=== PATIENT | female | born 1970 | race Caucasian/White ===

== ENCOUNTER 2021-03-03 14:51 | Outpatient (CLI) | payer BC | END 2021-03-03 14:52 | disposition home or self-care (01) | LOC: CSHMAMMO 14:51 | PROVIDERS: ATTEND Obstetrics & Gynecology | DX: Z12.31 Encounter for screening mammogram for malignant neoplasm of breast (principal); Z98.82 Breast implant status | CPT/HCPCS: 77063; 77067 ==

== ENCOUNTER 2022-05-16 08:38 | Outpatient (CLI) | payer OTHER | END 2022-05-16 08:39 | disposition home or self-care (01) | LOC: CSHMAMMO 08:38 | PROVIDERS: ATTEND Obstetrics & Gynecology | DX: Z12.31 Encounter for screening mammogram for malignant neoplasm of breast (principal); Z98.82 Breast implant status | CPT/HCPCS: 77063; 77067 ==

== ENCOUNTER 2023-11-21 16:07 | Inpatient (IN) | payer BC ==
[~2023-11-21 16:07] MED LIST: Iopamidol 370 76% 100 ML VIAL ONE
[2023-11-21] MEDS ORDERED: Aspirin Chewable 81 MG TAB ONE (17:17)
[2023-11-21 17:23] LABS: #Basophils 0.08 10x3/uL (0.0-0.2); #Eosinphils 0.86 10x3/uL (0.0-0.5); #Monocytes 0.78 10x3/uL (0.0-1.1); #Neutrophils 5.18 10x3/uL (1.5-8.4); %Basophils 0.8 % (0.0-2.0); %Eosinophils 9.1 % (0.0-6.0); %Lymphocytes 26.5 % (18.0-47.0); %Monocytes 8.3 % (0.0-10.0); %Neutrophils 54.9 % (40.0-75.0); Hematocrit 43.7 % (34.9-44.5); Hemoglobin 14.4 g/dL (12.0-15.5); Mean Corpuscular Hemoglobin 30.2 pg (27.0-33.0); Mean Corpuscular Volume 91.6 fL (81.6-98.3); Mean Platelet Volume 9.8 fL (7.4-10.4); Platelet Count 330 10x3/uL (150-450); RBC Distribution Width 12.3 % (11.5-14.5); Red Blood Cell (RBC) Count 4.77 10x6/uL (3.90-5.03); White Blood Cell (WBC) Count 9.4 10x3/uL (3.5-10.5)
[2023-11-21 17:27] LABS: PTT 30.2 sec (22.0-33.0); Prothrombin Time 11.2 sec (9.5-12.1)
[2023-11-21 17:38] LABS: ALT (SGPT) 32 U/L (8-55); AST (SGOT) 31 U/L (5-34); Albumin 4.4 g/dL (3.5-5.0); Alkaline Phosphatase 58 U/L (40-110); Anion Gap 15 mmol/L (10-20); BUN (Urea Nitrogen) 10 mg/dL (9.8-20.1); Bilirubin, Total 0.4 mg/dL (0.2-1.2); Calc. Creatinine Clearance 0 mL/min (70-130); Calcium 9.7 mg/dL (7.8-10.44); Carbon Dioxide 23 mmol/L (22-29); Chloride 102 mmol/L (98-107); Estimated GFR 90; Globulin 3.2 g/dL (2.4-3.5); Glucose 83 mg/dL (70-105); Potassium 4.2 mmol/L (3.5-5.1); Protein, Total 7.6 g/dL (6.0-8.3); Sodium 136 mmol/L (136-145)
[2023-11-21 17:39] LABS: BHCG - Serum Negative (NEGATIVE); Pregs Control Background? CLEAR/WHITE (CLR/WHITE); Pregs Control Bar Appear? YES (CONTROL BAR)
[2023-11-21 17:44] LABS: Troponin I Less than 0.010 ng/mL (< 0.028)
[2023-11-21 18:05] LABS: Influenza A by NAA Not Detected (NotDetected); Influenza B by NAA Not Detected (NotDetected); SARS-CoV-2 NAA Rapid Test Not Detected (NotDetected)
[2023-11-21] MEDS ORDERED: Senokot S 8.6-50 MG TAB PO PRN (19:24)
[2023-11-21] MEDS ORDERED: Calcium Carbonate 500 MG ChewTAB PO PRN (19:24)
[2023-11-21] MEDS ORDERED: traMADol HCl 50 MG TAB PO PRN (19:24)
[2023-11-21] MEDS ORDERED: Guaifenesin DM 100-10/5 ML UDCUP PO PRN (19:24)
[2023-11-21] MEDS ORDERED: Acetaminophen 325 MG TAB PO PRN (19:24)
[2023-11-21] MEDS ORDERED: Ondansetron PF 4 MG/2 ML Vial IVP PRN (19:24)
[2023-11-21 21:11] VITALS: BMI 22.8
[2023-11-21] MEDS: Metoprolol Tartrate 25 MG TAB PO SCH (22:04)
[2023-11-21 22:25] LABS: Troponin I 0.013 ng/mL (< 0.028)
[2023-11-22 04:09] LABS: Cholesterol 151 mg/dl (< 200 Desired); HDL Cholesterol 50 mg/dL (>60 Neg Risk); LDL Cholesterol, Calculated 91 mg/dL; Magnesium 1.9 mg/dL (1.6-2.6); Triglycerides 50 mg/dL (Less than 150)
[2023-11-22] MEDS: Aspirin 81 mg Enteric Coated Tablet PO SCH (08:27)
[2023-11-22] MEDS: Enoxaparin 40 MG (0.4 mL) SYRINGE SC SCH (08:27)
[2023-11-22] MEDS ORDERED: Perflutren Lipid Microspheres 1.1 MG/ML VIAL ONE (09:14)
[2023-11-22] MEDS ORDERED: Communication Order-Pharmacy FS SCH (12:00)
[2023-11-22] MEDS: Empagliflozin 10 MG TAB PO SCH (12:54)
[2023-11-22 13:21] LABS: HIV (1/2) Antibody/Antigen Non-Reactive (NonReactive)
[2023-11-22 16:28] LABS: Reference Lab Name LABCORP
[2023-11-22] MEDS: Carvedilol 3.125 MG TAB PO SCH (17:39)
[2023-11-22] MEDS: Sacubitril 24MG/Valsartan 26 MG TAB PO SCH (20:31)
[2023-11-22] MEDS: Zolpidem Tartrate 5 MG TAB PO PRN (20:31)
[2023-11-23 05:01] LABS: #Basophils 0.11 10x3/uL (0.0-0.2); #Monocytes 0.74 10x3/uL (0.0-1.1); %Basophils 1.3 % (0.0-2.0); %Eosinophils 12.2 % (0.0-6.0); %Lymphocytes 37.1 % (18.0-47.0); Hematocrit 46.3 % (34.9-44.5); Hemoglobin 15.2 g/dL (12.0-15.5); Mean Corpuscular HGB CONC 32.8 g/dL (32.0-36.0); Mean Corpuscular Hemoglobin 30.3 pg (27.0-33.0); Mean Corpuscular Volume 92.4 fL (81.6-98.3); Mean Platelet Volume 9.7 fL (7.4-10.4); Platelet Count 333 10x3/uL (150-450); RBC Distribution Width 12.4 % (11.5-14.5); Red Blood Cell (RBC) Count 5.01 10x6/uL (3.90-5.03); White Blood Cell (WBC) Count 8.2 10x3/uL (3.5-10.5)
[2023-11-23 05:09] LABS: PTT 29.1 sec (22.0-33.0); Prothrombin Time 11.3 sec (9.5-12.1)
[2023-11-23 05:14] LABS: ALT (SGPT) 34 U/L (8-55); AST (SGOT) 33 U/L (5-34); Albumin 4.1 g/dL (3.5-5.0); Alkaline Phosphatase 52 U/L (40-110); Anion Gap 13 mmol/L (10-20); BUN (Urea Nitrogen) 11 mg/dL (9.8-20.1); Bilirubin, Total 0.5 mg/dL (0.2-1.2); Calc. Creatinine Clearance 75 mL/min (70-130); Calcium 9.8 mg/dL (7.8-10.44); Carbon Dioxide 26 mmol/L (22-29); Chloride 104 mmol/L (98-107); Estimated GFR 86; Glucose 87 mg/dL (70-105); Potassium 4.2 mmol/L (3.5-5.1); Protein, Total 7.1 g/dL (6.0-8.3); Sodium 139 mmol/L (136-145)
[2023-11-23] MEDS: Empagliflozin 10 MG TAB PO SCH (07:42)
[2023-11-23] MEDS ORDERED: Iopamidol 300 61% 100 ML VIAL FS ONE (07:55)
[2023-11-23 10:56] LABS: Reference Lab Name LABCORP
[2023-11-23] MEDS ORDERED: Nitroglycerin 50 MG/250 ML BOT 250 ML ONE (13:21)
[2023-11-23] MEDS ORDERED: Verapamil 5 MG/2 ML VIAL ONE (13:21)
[2023-11-23] MEDS ORDERED: Heparin 10,000 UNITS/ 10 ML VIAL ONE (13:21)
[2023-11-23] MEDS ORDERED: Lidocaine 1% (PF) 30 ML VIAL ONE (13:23)
[2023-11-23] MEDS ORDERED: fentaNYL 50 mcg/mL 1 mL Vial ONE (13:24)
[2023-11-23] MEDS ORDERED: Midazolam HCl 2 mg/2 ml Vial ONE (13:24)
[2023-11-23] MEDS ORDERED: Sodium Chloride 0.9% 200 ML IV PRN (14:19)
[2023-11-23] MEDS ORDERED: Nitroglycerin 0.4 MG TAB (25 Tab Bottle) SL PRN (14:19)
[2023-11-23] MEDS ORDERED: Acetaminophen/Codeine 30-300mg Tablet PO PRN ×2 (14:19)
[2023-11-24 09:03] VITALS: TEMP 98
[2023-11-24 12:18] VITALS: BP 96/62
[2023-11-24 15:18] LABS: ANA Symphony (Qualitative) Negative (Negative); ANA Symphony (Quantitative) 0.2 Ratio (< 0.7 Negative); dsDNA IgG Antibody Less than 0.6 IU/mL (<10 Negative)
[2023-11-27 13:37] LABS: Parvovirus B19 IgG ABS 0.2 index (0.0-0.8); Parvovirus B19 IgM ABS 0.2 index (0.0-0.8)
== END 2023-11-24 13:30 | disposition home or self-care (01) | DRG 286 ==
LOC: CSHERS 16:07 → CSHTELE 19:27 → OBSVTOIN 11-23 11:10
PROVIDERS: ADMIT Student in an Organized Health Care Education/Training Program; ATTEND Internal Medicine
PROC: 4A023N7 Measurement of Cardiac Sampling and Pressure, Left Heart, Percutaneous Approach (ICD-10-PCS; principal; 2023-11-23)
PROC: B2111ZZ Fluoroscopy of Multiple Coronary Arteries using Low Osmolar Contrast (ICD-10-PCS; 2023-11-23)
PROC: B2151ZZ Fluoroscopy of Left Heart using Low Osmolar Contrast (ICD-10-PCS; 2023-11-23)
DX: I42.0 Dilated cardiomyopathy (principal); I50.21 Acute systolic (congestive) heart failure; Z79.899 Other long term (current) drug therapy; Z98.890 Other specified postprocedural states; I44.7 Left bundle-branch block, unspecified; Z79.82 Long term (current) use of aspirin
CPT/HCPCS: 36415; 71275; 80053; 80061; 82607; 83735; 83880; 84443; 84484; 84703; 85025; 85610; 85730; 86038; 86225; 86747; 87389; 93005; 93306; 93458; 96372; 99152; 99153; C1769; C1894; G0378; J1644; J1650; J2001; J2250; J3010; Q9957; Q9967

== ENCOUNTER 2024-03-02 09:17 | Emergency (ER) | payer BC ==
[2024-03-02] MEDS ORDERED: Sodium Chloride 0.9% 250 ML 250 ML ONE (10:16)
[2024-03-02 10:28] LABS: #Basophils 0.07 10x3/uL (0.0-0.2); #Eosinophils 0.85 10x3/uL (0.0-0.5); #Monocytes 0.74 10x3/uL (0.0-1.1); #Neutrophils 7.89 10x3/uL (1.5-8.4); %Basophils 0.6 % (0.0-2.0); %Eosinophils 7.4 % (0.0-6.0); %Lymphocytes 16.5 % (18.0-47.0); %Monocytes 6.5 % (0.0-10.0); %Neutrophils 68.7 % (40.0-75.0); Hematocrit 39.6 % (34.9-44.5); Hemoglobin 13.5 g/dL (12.0-15.5); Mean Corpuscular HGB CONC 34.1 g/dL (32.0-36.0); Mean Corpuscular Hemoglobin 30.1 pg (27.0-33.0); Mean Corpuscular Volume 88.2 fL (81.6-98.3); Mean Platelet Volume 9.7 fL (7.4-10.4); Platelet Count 264 10x3/uL (150-450); RBC Distribution Width 11.9 % (11.5-14.5); Red Blood Cell (RBC) Count 4.49 10x6/uL (3.90-5.03); White Blood Cell (WBC) Count 11.5 10x3/uL (3.5-10.5)
[2024-03-02 10:38] LABS: ALT (SGPT) 39 U/L (8-55); AST (SGOT) 29 U/L (5-34); Albumin 4.2 g/dL (3.5-5.0); Alkaline Phosphatase 54 U/L (40-110); Anion Gap 12 mmol/L (10-20); BUN (Urea Nitrogen) 13 mg/dL (9.8-20.1); Bilirubin, Total 0.4 mg/dL (0.2-1.2); Calc. Creatinine Clearance 0 mL/min (70-130); Calcium 9.4 mg/dL (7.8-10.44); Carbon Dioxide 25 mmol/L (22-29); Chloride 105 mmol/L (98-107); Estimated GFR 83; Globulin 2.7 g/dL (2.4-3.5); Glucose 92 mg/dL (70-105); Magnesium 1.8 mg/dL (1.6-2.6); Potassium 4.1 mmol/L (3.5-5.1); Protein, Total 6.9 g/dL (6.0-8.3); Sodium 138 mmol/L (136-145)
[2024-03-02 11:07] LABS: Bilirubin Neg (Negative); Blood, Urine 10 (Negative); Clarity Clear (Clear); Glucose, Urine (Dipstick) >=1000 mg/dL (Negative); Ketone, Urine 5 mg/dL (Negative); Leukocyte 25 (Negative); Nitrite Negative (Negative); Protein, Urine (Dipstick) 15 mg/dl (Neg-Trace); Specific Gravity, Urine 1.015 (1.005-1.030); Urobilinogen Normal mg/dL (Less than 2)
[2024-03-02 11:15] LABS: Bacteria/HPF 3+ HPF (None Seen); CAUTI Indications for Culture Alt mental st,lethar; RBC/HPF 0-3 HPF (0-3); Squamous Epithelial 0-3 HPF (0-3); Urine Culture Reflex No No; WBC/HPF 0-3 HPF (0-3)
== END 2024-03-02 12:39 | disposition home or self-care (01) ==
LOC: CSHERS 09:17
DX: N39.0 Urinary tract infection, site not specified (principal); I50.9 Heart failure, unspecified
CPT/HCPCS: 71045; 80053; 81001; 83735; 83880; 85025; 87428; 93005; J7050